=== PATIENT | male | born 1970 | race Caucasian/White ===

== ENCOUNTER 2020-12-08 17:16 | Emergency (ER) | payer OTHER ==
[~2020-12-08] VITALS: Ht 185.4 cm; Wt 120.2 kg
[2020-12-08] MEDS ORDERED: DEXAMETHASONE 44 M1 PO (18:27)
[2020-12-08] MEDS ORDERED: ZPAK PO (18:27)
[2020-12-08] MEDS ORDERED: VENTOLIN HFA 1818 GM INH (18:27)
[2020-12-08] MEDS ORDERED: ZOFRAN ODT4 MG DISSOLVE (18:27)
[2020-12-08 18:40] VITALS: BP 110/54
== END 2020-12-08 18:40 | disposition home or self-care (01) ==
LOC: M.ERS 17:16
DX: U07.1 COVID-19 (principal)